=== PATIENT | male | born 1950 | race Caucasian/White ===

== ENCOUNTER 2025-01-16 10:00 | Outpatient (RCR) | payer MEDICARE, SELFPAY ==
[2025-01-16 10:10] VITALS: BP 120/78; PULSE 101; RESP 18; TEMP 37; O2SAT 97
[2025-01-16 10:30] VITALS: BP 105/69; PULSE 96; RESP 18; TEMP 36.7; O2SAT 97
[2025-01-16 11:02] VITALS: BP 112/75; PULSE 81; RESP 18; TEMP 36.6; O2SAT 98
[2025-01-16 11:35] VITALS: BP 108/71; PULSE 86; RESP 16; TEMP 36; O2SAT 98
[2025-01-16 11:55] VITALS: BP 110/73; PULSE 77; RESP 16; TEMP 36.2; O2SAT 99
[2025-01-16 13:01] VITALS: BP 112/78; PULSE 79; RESP 18; TEMP 36; O2SAT 97
--- NOTE | 2025-01-23 07:48 | ONC.NURNOTE ---
Dx: Prostate cancer
== END 2025-07-14 23:59 | disposition home or self-care (01) ==
LOC: CCIC 10:00
PROVIDERS: PCP Internal Medicine; Visit Provider Clinical Nurse Specialist
DX: C61 Malignant neoplasm of prostate (principal)
CPT/HCPCS: 36415; 36430; 36591; 86850; 86900; 86901; 86922; P9016